=== PATIENT | female | born 2000 | race Caucasian/White ===

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

== ENCOUNTER 2021-10-18 00:07 | Inpatient (IN) | payer MEDICAID, OTHER ==
[~2021-10-18] VITALS: Ht 152.4 cm; Wt 90.9 kg
[2021-10-18] MEDS ORDERED: 0.9% SODIUM CHLORIDE 10 ML SYRINGE IVP PRN (00:30)
[2021-10-18 00:50] LABS: BASOPHILS % (AUTO) 0.5 % (0.0-2.0); EOSINOPHILS % (AUTO) 0.2 % (1.0-6.0); HEMATOCRIT 33.3 % (36-46); HEMOGLOBIN 11.1 g/dL (12.0-16.0); LYMPHOCYTES # (AUTO) 2.2 K/uL (1.0-4.8); LYMPHOCYTES % (AUTO) 15.6 % (22.0-44.0); MEAN CORPUSCULAR HEMOGLOBIN 24.6 pg (26.0-34.0); MEAN CORPUSCULAR HGB CONC 33.2 G/dL (31.0-37.0); MEAN CORPUSCULAR VOLUME 74 fL (80-100); MONOCYTES # (AUTO) 1.3 K/uL (0.1-1.0); MONOCYTES % (AUTO) 9.5 % (2.0-9.0); NEUTROPHILS # (AUTO) 10.4 K/uL (1.8-7.7); NEUTROPHILS % (AUTO) 74.2 % (40.0-70.0); PLATELET COUNT (AUTO) 347 K/uL (150-450); RED BLOOD CELL COUNT(AUTO) 4.51 MIL/uL (4.00-5.20); RED CELL DISTRIBUTION WIDTH 19.5 % (11.5-14.5)
[2021-10-18 00:57] LABS: ANION GAP 11 mmol/L (8-16); CALCIUM, TOTAL 9.3 mg/dL (8.8-10.5); CARBON DIOXIDE 27 mmol/L (22-29); CHLORIDE 99 mmol/L (98-107); CREATININE 0.86 mg/dL (0.60-1.30); GLOMERULAR FILTR. RATE CALC > 60 mL/min (>60); GLUCOSE,RANDOM 120 mg/dL (70-110); POTASSIUM 3.2 mmol/L (3.5-5.1); SODIUM SERUM 137 mmol/L (136-145); UREA NITROGEN, BLOOD 6 mg/dL (7-18)
[2021-10-18 01:03] LABS: PROTHROMBIN TIME 11.1 SEC (9.4-11.6)
[2021-10-18 01:04] LABS: LACTIC ACID 1.6 mmol/L (0.4-2.0)
[2021-10-18 01:05] LABS: B-TYPE NATRIURETIC PEPTIDE 10 pg/mL (0-100)
[2021-10-18 01:09] LABS: ALANINE AMINOTRANSFERASE 44 U/L (12-78); ALBUMIN 3.5 g/dL (3.4-5.0); ALKALINE PHOSPHATASE 101 U/L (46-116); ASPARTATE AMINOTRANSFERASE 19 U/L (15-37); BILIRUBIN,TOTAL 0.4 mg/dL (0.1-1.0); CREATINE KINASE, TOTAL ONLY 49 U/L (26-192); HCG,QUANTITATIVE < 1 mIU/mL (0-6); PHOSPHORUS 2.2 mg/dL (2.5-4.9); TOTAL PROTEIN, SERUM 8.5 g/dL (6.4-8.2)
[2021-10-18] MEDS ORDERED: POTASSIUM PHOS,M-BASIC-D-BASIC 20 MMOL in DEXTROSE 5%-WATER 150 ML IV ONE (01:15)
[2021-10-18] MEDS ORDERED: ACETAMINOPHEN 1000 MG/ISO-OSM 100 ML IV ONE (01:15)
[2021-10-18] MEDS ORDERED: ONDANSETRON HCL 4 MG/2 ML VIAL IVP ONE (01:15)
[2021-10-18] MEDS ORDERED: SODIUM CHLORIDE 0.9% 1,000 ML IV ONE ×2 (01:15→02:00)
[2021-10-18 01:20] LABS: APPEARANCE,URINE CLOUDY (CLEAR); BILIRUBIN,URINE NEGATIVE (NEGATIVE); GLUCOSE, URINE (UA) NEGATIVE (NEGATIVE); KETONES,URINE TRACE mg/dL (NEGATIVE); LEUKOCYTE ESTERASE ,URINE MODERATE (NEGATIVE); NITRATE,URINE POSITIVE (NEGATIVE); OCCULT BLOOD,URINE LARGE (NEGATIVE); PROTEIN,URINE SEE CONFIRM (NEGATIVE)
[2021-10-18 01:28] LABS: SULFOSALICYLIC ACID,URINE 2+ (Negative)
[2021-10-18 01:29] LABS: BACTERIA,URINE Many /HPF (None Seen); WBC,URINE 51-100 /HPF (0-5)
[2021-10-18] MEDS ORDERED: SODIUM CHLORIDE 0.9% 100 ML ONE (01:44)
[2021-10-18] MEDS ORDERED: IOHEXOL 350 MG/ML 100 ML VIAL ONE (01:44)
[2021-10-18] MEDS ORDERED: CefTRIAXone 1 GM/DEXTROSE 50 ML IV ONE (01:45)
[2021-10-18] MEDS ORDERED: SODIUM CHLORIDE 0.9% 700 ML IV ONE (04:00)
[2021-10-18] MEDS: RINGERS SOLUTION,LACTATED 1,000 ML IV SCH ×3 (04:45→20:00)
[2021-10-18 05:11] LABS: COVID AG,FIA SOURCE NASOPHARYNGEAL
[2021-10-18 05:28] LABS: CHOL/HDL RATIO 5.6 (3.9-5.7); CHOLESTEROL 186 mg/dL (131-200); HDL CHOLESTEROL 33 mg/dL (40-60); HEMOGLOBIN A1C 5.5 % (3.8-5.6); LDL CHOL (CALC.) 133 mg/dL (0-130); LIPASE 100 U/L (73-393); TRIGLYCERIDES 101 mg/dL (15-150)
[2021-10-18 05:48] LABS: INFLUENZA TYPE A NEGATIVE FOR TYPE A (NEGATIVE); INFLUENZA TYPE B NEGATIVE FOR TYPE B (NEGATIVE)
[2021-10-18 06:09] LABS: AMPHET/METH SCREEN,URINE NEGATIVE (NEGATIVE); BARBITURATE SCREEN, URINE NEGATIVE (NEGATIVE); BENZODIAZEPINES SCREEN,URINE NEGATIVE (NEGATIVE); CANNABINOID SCREEN,URINE POSITIVE (NEGATIVE); COCAINE SCREEN,URINE NEGATIVE (NEGATIVE); METHADONE SCREEN, URINE NEGATIVE (NEGATIVE); OPIATE SCREEN,URINE NEGATIVE (NEGATIVE); PHENCYCLIDINE SCREEN,URINE NEGATIVE (NEGATIVE)
[2021-10-18] MEDS ORDERED: POTASSIUM CHL 10 MEQ/WATER 50 ML IV PRN (07:45)
[2021-10-18] MEDS ORDERED: POTASSIUM CHLORIDE 20 MEQ ER TABLET PO PRN (07:45)
[2021-10-18] MEDS: ACETAMINOPHEN 325 MG TABLET PO PRN (12:52)
[2021-10-18] MEDS ORDERED: CefTAZidime PENTAHYDRATE 2 GM in DEXTROSE 5%-WATER 50 ML IV SCH (14:00)
[2021-10-18 15:07] VITALS: BP 123/79
[2021-10-18] MEDS ORDERED: MORPHINE SULFATE 2 MG/ML SYRINGE IVP PRN (15:30)
[2021-10-18] MEDS: HYDROCODONE/ACETAMINOPHEN 5-325 MG TABLET PO PRN (15:55)
[2021-10-18] MEDS: HEPARIN SODIUM,PORCINE 5,000 UNITS/ML VIAL SQ SCH ×2 (16:58→23:13)
[2021-10-18 19:45] VITALS: BP 144/81
[2021-10-19] MEDS: HYDROCODONE/ACETAMINOPHEN 5-325 MG TABLET PO PRN ×3 (00:03→23:49)
[2021-10-19 02:06] LABS: HIV 1-2 SCREEN 4TH GEN W/RFLX Non Reactive (Non Reactive)
[2021-10-19] MEDS: CefTRIAXone 1 GM/DEXTROSE 50 ML IV SCH (02:06)
[2021-10-19 04:29] VITALS: BP 107/65
[2021-10-19] MEDS: RINGERS SOLUTION,LACTATED 1,000 ML IV SCH (05:16)
[2021-10-19 08:35] VITALS: BP 129/72
[2021-10-19] MEDS: HEPARIN SODIUM,PORCINE 5,000 UNITS/ML VIAL SQ SCH ×3 (08:35→23:48)
[2021-10-19 08:53] LABS: BASOPHILS % (AUTO) 0.9 % (0.0-2.0); EOSINOPHILS % (AUTO) 0.9 % (1.0-6.0); HEMATOCRIT 29.1 % (36-46); HEMOGLOBIN 9.6 g/dL (12.0-16.0); LYMPHOCYTES # (AUTO) 3.1 K/uL (1.0-4.8); LYMPHOCYTES % (AUTO) 28.8 % (22.0-44.0); MEAN CORPUSCULAR HGB CONC 33.1 G/dL (31.0-37.0); MEAN CORPUSCULAR VOLUME 76 fL (80-100); MONOCYTES # (AUTO) 0.9 K/uL (0.1-1.0); MONOCYTES % (AUTO) 8.2 % (2.0-9.0); NEUTROPHILS # (AUTO) 6.6 K/uL (1.8-7.7); NEUTROPHILS % (AUTO) 61.2 % (40.0-70.0); PLATELET COUNT (AUTO) 296 K/uL (150-450); RED BLOOD CELL COUNT(AUTO) 3.84 MIL/uL (4.00-5.20); RED CELL DISTRIBUTION WIDTH 19.8 % (11.5-14.5)
[2021-10-19 09:20] LABS: ANION GAP 6 mmol/L (8-16); CALCIUM, TOTAL 8.6 mg/dL (8.8-10.5); CARBON DIOXIDE 28 mmol/L (22-29); CHLORIDE 105 mmol/L (98-107); CREATININE 0.53 mg/dL (0.60-1.30); GLUCOSE,RANDOM 93 mg/dL (70-110); POTASSIUM 3.6 mmol/L (3.5-5.1); SODIUM SERUM 139 mmol/L (136-145); UREA NITROGEN, BLOOD 1 mg/dL (7-18)
[2021-10-19 09:31] LABS: GLOMERULAR FILTR. RATE CALC > 60 mL/min (>60)
[2021-10-19] MEDS: ACETAMINOPHEN 325 MG TABLET PO PRN (15:26)
[2021-10-19 16:21] VITALS: BP 140/75
[2021-10-19 21:13] VITALS: BP 122/67
[2021-10-20] MEDS: CefTRIAXone 1 GM/DEXTROSE 50 ML IV SCH (01:39)
[2021-10-20 05:55] VITALS: BP 110/70
[2021-10-20 08:23] VITALS: BP 137/98
[2021-10-20] MEDS: HYDROCODONE/ACETAMINOPHEN 5-325 MG TABLET PO PRN ×3 (08:33→22:08)
[2021-10-20] MEDS: ONDANSETRON HCL 4 MG/2 ML VIAL IVP PRN (08:33)
[2021-10-20] MEDS: HEPARIN SODIUM,PORCINE 5,000 UNITS/ML VIAL SQ SCH ×2 (08:33→16:05)
[2021-10-20 15:36] VITALS: BP 141/90
[2021-10-20 19:52] VITALS: BP 126/77
[2021-10-21] MEDS: CefTRIAXone 1 GM/DEXTROSE 50 ML IV SCH (01:28)
[2021-10-21] MEDS: HEPARIN SODIUM,PORCINE 5,000 UNITS/ML VIAL SQ SCH ×3 (01:28→15:19)
[2021-10-21 04:35] VITALS: BP 125/87
[2021-10-21 07:43] VITALS: BP 126/72
[2021-10-21] MEDS: ONDANSETRON HCL 4 MG/2 ML VIAL IVP PRN (12:01)
[2021-10-21 16:31] VITALS: BP 124/69
[2021-10-21 20:05] VITALS: BP 125/70
[2021-10-21] MEDS: HYDROCODONE/ACETAMINOPHEN 5-325 MG TABLET PO PRN (22:08)
[2021-10-22] MEDS: CefTRIAXone 1 GM/DEXTROSE 50 ML IV SCH (02:46)
[2021-10-22 04:05] VITALS: BP 122/60
[2021-10-22] MEDS: HYDROCODONE/ACETAMINOPHEN 5-325 MG TABLET PO PRN (05:21)
[2021-10-22 07:38] VITALS: BP 128/97
[2021-10-22] MEDS ORDERED: CEPH500C3 PO (10:25)
[2021-10-22] MEDS: HEPARIN SODIUM,PORCINE 5,000 UNITS/ML VIAL SQ SCH ×2 (10:44)
== END 2021-10-22 12:23 | disposition home or self-care (01) | DRG 720 ==
LOC: EMS 00:08 → 6S 13:57 → 6N 23:16
PROVIDERS: ADMIT Internal Medicine; ATTEND Internal Medicine
DX: A41.9 Sepsis, unspecified organism (principal); E66.9 Obesity, unspecified; F12.90 Cannabis use, unspecified, uncomplicated; E87.6 Hypokalemia; F17.210 Nicotine dependence, cigarettes, uncomplicated; Z20.822 Contact with and (suspected) exposure to COVID-19; N10 Acute pyelonephritis; Z68.39 Body mass index [BMI] 39.0-39.9, adult; Z88.5 Allergy status to narcotic agent; Z88.8 Allergy status to other drugs, medicaments and biological substances; Z79.899 Other long term (current) drug therapy
CPT/HCPCS: 71045; 74177; 76770; 80048; 80053; 80061; 81001; 81002; 82550; 83036; 83605; 83690; 83735; 83880; 84100; 84132; 84145; 84484; 84702; 85025; 85610; 87040; 87086; 87389; 87491; 87591; 87804; 93005; 99291; J0131; J0696; J1644; J2405; J3490; J7030; J7050; J7060; J7120; Q9967; 36415-L1; 36415-TC; U0003